=== PATIENT | female | born 1950 | race Caucasian/White ===

== ENCOUNTER 2020-10-11 09:08 | Outpatient (REF) | payer MEDICARE, SELFPAY ==
--- NOTE | ~2020-10-11 | FL_ITS ---
EXAMINATION: FL GI SERIES CLINICAL INFORMATION: Epigastric pain. COMPARISON: None TECHNIQUE: Routine upper GI air-contrast study was performed. FINDINGS: Following oral administration of thick barium and effervescent granules, there is normal propagation of the bolus from the oral cavity through the pharynx, esophagus into the stomach without any evidence of obstruction, narrowing or stricture. On placing the patient supine and prone lying, there is a small, sliding hiatal hernia with mild gastroesophageal reflux. The mucosal pattern of the stomach, duodenal bulb and the sweep is normal. The mucosal pattern of the stomach and the duodenum is normal. FLUOROSCOPY TIME: 1.9 minutes DOSE AREA PRODUCT: 38.670 uGy-m2 (microgray-meter squared) FL/FL upper GI series IMPRESSION: Small, sliding hiatal hernia with mild gastroesophageal reflux.
== END 2020-10-11 09:09 | disposition home or self-care (01) ==
LOC: HO.XRAY 09:08
PROVIDERS: PCP Nurse Practitioner Family; Visit Provider Internal Medicine
DX: R10.13 Epigastric pain (principal)
CPT/HCPCS: 74240